=== PATIENT | female | born 1995 | race Caucasian/White ===

== ENCOUNTER 2019-01-11 09:26 | Emergency (ER) | payer BC, OTHER ==
--- NOTE | 2019-01-11 10:17 | ERPHSYRPT ---
- History of Present Illness Time Seen by Provider: 01/11/19 10:10 Historian: patient, family () Exam Limitations: no limitations Patient Subjective Stated Complaint: pain in upper left quadrant and lower medial back, has N&V Triage Nursing Assessment: Pt c/o of sudden onset of LUQ pain and low medial back pain with N&V, and normal delivery on 11/13/2018, pain with palpatation, vitals wnl, pt rates pain 8/10, softer than usual bowel movement this morning, hypoactive bowel sounds, Physician History: The patient is a 23-year-old female with her complaining of a sudden onset of left flank pain about one hour ago. The pain caused her to vomit and has nausea. She denies diarrhea. Upon arrival to the ER the pain subsided for about 10 minutes and now it has come back. The pain has now shifted from the left flank region around to the left lower quadrant and suprapubic area. She delivered a healthy baby on November 13 vaginally. She is not currently breast- feeding. She takes no prescription medicines except control pills. Timing/Duration: today, hour(s) (1), intermittent, sudden, worse Activities at Onset: none Quality: sharpness, stabbing Abdominal Pain Onset Location: flank (left) Pain Radiation: LLQ Severity of Pain-Max: severe Severity of Pain-Current: severe Modifying Factors: Improves With: vomiting Associated Symptoms: nausea, vomiting, No diarrhea Previous symptoms: no prior history Allergies/Adverse Reactions: No Known Drug Allergies Allergy (Verified 01/11/19 09:45) Home Medications: Norethindrone 1 tab PO DAILY 01/11/19 [History] Vits W-Ca,Fe,FA(<1Mg) [] 1 each PO DAILY 01/11/19 [History] - Review of Systems Constitutional: No Fever, No Chills Eyes: No Symptoms Ears, Nose, & Throat: No Symptoms Respiratory: No Cough, No Dyspnea Cardiac: No Chest Pain, No Edema, No Syncope Abdominal/Gastrointestinal: Abdominal Pain, Nausea, Vomiting, No Diarrhea Genitourinary Symptoms: Flank Pain (left), No Dysuria Musculoskeletal: No Back Pain, No Neck Pain Skin: No Rash Neurological: No Dizziness, No Focal Weakness, No Sensory Changes Psychological: No Symptoms Endocrine: No Symptoms Hematologic/Lymphatic: No Symptoms Immunological/Allergic: No Symptoms All Other Systems: Reviewed and Negative - Past Medical History Pertinent Past Medical History: No - Past Surgical History Past Surgical History: No - Social History Smoking Status: Current every day smoker How long have you smoked: 9 years Exposure to second hand smoke: Yes Drug Use: none Patient Lives Alone: No - Female History Hx Last Menstrual Period: 01/09/2019 Hx Now: No - Nursing Vital Signs Nursing Vital Signs: Initial Vital Signs Temperature 71 F 01/11/19 09:33 Blood Pressure 142/91 01/11/19 09:33 O2 Sat by Pulse Oximetry 97 01/11/19 09:33 Pain Scale Pain Intensity 0 - Physical Exam General Appearance: moderate distress Eye Exam: PERRL/EOMI, eyes nml inspection Ears, Nose, Throat Exam: normal ENT inspection, pharynx normal, moist mucous membranes Neck Exam: normal inspection, non-tender, supple, full range of motion Respiratory Exam: normal breath sounds, lungs clear, No respiratory distress Cardiovascular Exam: regular rate/rhythm, normal heart sounds Gastrointestinal/Abdomen Exam: tenderness (LLQ left flank) Pelvic Exam: not done Rectal Exam: not done Back Exam: normal inspection, normal range of motion, No CVA tenderness, No vertebral tenderness Extremity Exam: normal inspection, normal range of motion, pelvis stable Neurologic Exam: alert, oriented x 3, cooperative, normal mood/affect, nml cerebellar function, sensation nml, No motor deficits Skin Exam: normal color, warm, dry SpO2 Interpretation: normal SpO2: 97 O2 Delivery: Room Air - CT Exams Abdomen/Pelvis CT Interpretation: Tele-radiologist Report (Per Dr Whelan), Other (3 mm distal left ureteral stone with mild to moderate hydronephrosis) Ordered Tests: Active Orders 24 hr Category Date Time Status Clean Catch Urine Specimen STAT Care 01/11/19 10:20 Active IV Insertion STAT Care 01/11/19 10:20 Active Strain Urine .as ordered Care 01/11/19 12:05 Active ABDOMEN AND PELVIS W/0 CONTRAS [CT] Stat Exams 01/11/19 10:20 Taken AMYLASE Stat Lab 01/11/19 10:30 Completed CBC W DIFF Stat Lab 01/11/19 10:30 Completed CMP Stat Lab 01/11/19 10:30 Completed CULTURE,URINE Stat Lab 01/11/19 10:30 Received HCG QUALITATIVE,SERUM Stat Lab 01/11/19 10:30 Completed LIPASE Stat Lab 01/11/19 10:30 Completed Lactic Acid Stat Lab 01/11/19 10:35 Completed UA W/RFX UR CULTURE Stat Lab 01/11/19 10:30 Completed Medication Summary Discontinued Medications Generic Name Dose Route Start Last Admin Trade Name Freq PRN Reason Stop Dose Admin Hydromorphone HCl 1 mg 01/11/19 10:20 01/11/19 10:56 Hydromorphone 1 Mg/Ml Ampule IV 01/11/19 10:21 1 mg STAT ONE Administration Hydromorphone HCl Confirm 01/11/19 10:52 Hydromorphone 1 Mg/Ml Ampule Administered 01/11/19 10:53 Dose 1 mg .ROUTE .STK-MED ONE Sodium Chloride 1,000 mls @ 999 mls/hr 01/11/19 10:20 01/11/19 10:56 Sodium Chloride 0.9% 1000 Ml IV 01/11/19 11:20 999 mls/hr .Q1H1M STA Administration Sodium Chloride Confirm 01/11/19 10:52 Sodium Chloride 0.9% 1000 Ml Administered 01/11/19 10:53 Dose 1,000 mls @ ud .ROUTE .STK-MED ONE Ondansetron HCl 4 mg 01/11/19 10:20 01/11/19 10:56 Zofran 4 Mg/2 Ml Vial IV 01/11/19 10:21 4 mg STAT ONE Administration Ondansetron HCl Confirm 01/11/19 10:52 Zofran 4 Mg/2 Ml Vial Administered 01/11/19 10:53 Dose 4 mg .ROUTE .STK-MED ONE Lab/Rad Data: Laboratory Result Diagrams 01/11/19 10:30 01/11/19 10:30 Laboratory Results 01/11/19 01/11/19 01/11/19 Range/Units 10:35 10:30 10:30 WBC (4.0-10.5) K/mm3 RBC (4.1-5.4) M/mm3 Hgb (12.0-16.0) gm/dl Hct (35-47) % MCV (78-100) fl MCH (26-32) pg MCHC (32-36) g/dl RDW (11.5-14.0) % Plt Count (150-450) K/mm3 MPV (6-9.5) fl Gran % (36.0-66.0) % Eos # (Auto) (0-0.5) Absolute Lymphs (auto) (1.0-4.6) Absolute Monos (auto) (0.0-1.3) Lymphocytes % (24.0-44.0) % Monocytes % (0.0-12.0) % Eosinophils % (0.00-5.0) % Basophils % (0.0-0.4) % Absolute Granulocytes (1.4-6.9) Basophils # (0-0.4) Sodium (137-145) mmol/L Potassium (3.5-5.1) mmol/L Chloride (98-107) mmol/L Carbon Dioxide (22-30) mmol/L Anion Gap (5-15) MEQ/L BUN (7-17) mg/dL Creatinine (0.52-1.04) mg/dL Estimated GFR ML/MIN Glucose (74-106) mg/dL Lactic Acid 1.6 (0.4-2.0) Calcium (8.4-10.2) mg/dL Total Bilirubin (0.2-1.3) mg/dL AST (14-36) U/L ALT (0-35) U/L Alkaline Phosphatase (38-126) U/L Serum Total Protein (6.3-8.2) g/dL Albumin (3.5-5.0) g/dL Amylase (30-110) U/L Lipase (23-300) U/L Serum , Qual NEGATIVE (Negative) Urine Color KATERYNA (YELLOW) Urine Appearance CLOUDY (CLEAR) Urine pH 5.0 (5-6) Ur Specific [place] 1.026 (1.005-1.025) Urine Protein 100 (Negative) Urine Ketones NEGATIVE (NEGATIVE) Urine Blood LARGE (0-5) Zack/ul Urine Nitrite NEGATIVE (NEGATIVE) Urine Bilirubin NEGATIVE (NEGATIVE) Urine Urobilinogen 2 (0-1) mg/dL Ur Leukocyte Esterase TRACE (NEGATIVE) Urine WBC (Auto) 26-50 (0-5) /HPF Urine RBC (Auto) >101 (0-2) /HPF U Epithel Cells (Auto) MODERATE (FEW) /HPF Urine Bacteria (Auto) FEW (NEGATIVE) /HPF Calcium Oxalate Crystal >100 (NEGATIVE) /HPF Urine Mucus (Auto) MANY (NEGATIVE) /HPF Urine Culture Reflexed YES (NO) Urine Glucose NEGATIVE (NEGATIVE) mg/dL 01/11/19 01/11/19 Range/Units 10:30 10:30 WBC 12.5 H (4.0-10.5) K/mm3 RBC 4.45 (4.1-5.4) M/mm3 Hgb 12.9 (12.0-16.0) gm/dl Hct 40.1 (35-47) % MCV 90.1 (78-100) fl MCH 29.0 (26-32) pg MCHC 32.2 (32-36) g/dl RDW 12.8 (11.5-14.0) % Plt Count 305 (150-450) K/mm3 MPV 9.2 (6-9.5) fl Gran % 81.8 H (36.0-66.0) % Eos # (Auto) 0.05 (0-0.5) Absolute Lymphs (auto) 1.54 (1.0-4.6) Absolute Monos (auto) 0.65 (0.0-1.3) Lymphocytes % 12.4 L (24.0-44.0) % Monocytes % 5.2 (0.0-12.0) % Eosinophils % 0.4 (0.00-5.0) % Basophils % 0.2 (0.0-0.4) % Absolute Granulocytes 10.19 H (1.4-6.9) Basophils # 0.02 (0-0.4) Sodium 142 (137-145) mmol/L Potassium 3.9 (3.5-5.1) mmol/L Chloride 106 (98-107) mmol/L Carbon Dioxide 26 (22-30) mmol/L Anion Gap 14.2 (5-15) MEQ/L BUN 14 (7-17) mg/dL Creatinine 0.89 (0.52-1.04) mg/dL Estimated GFR > 60.0 ML/MIN Glucose 118 H (74-106) mg/dL Lactic Acid (0.4-2.0) Calcium 9.8 (8.4-10.2) mg/dL Total Bilirubin 0.30 (0.2-1.3) mg/dL AST 20 (14-36) U/L ALT 28 (0-35) U/L Alkaline Phosphatase 76 (38-126) U/L Serum Total Protein 8.3 H (6.3-8.2) g/dL Albumin 4.8 (3.5-5.0) g/dL Amylase 73 (30-110) U/L Lipase 212 (23-300) U/L Serum , Qual (Negative) Urine Color (YELLOW) Urine Appearance (CLEAR) Urine pH (5-6) Ur Specific [place] (1.005-1.025) Urine Protein (Negative) Urine Ketones (NEGATIVE) Urine Blood (0-5) Zack/ul Urine Nitrite (NEGATIVE) Urine Bilirubin (NEGATIVE) Urine Urobilinogen (0-1) mg/dL Ur Leukocyte Esterase (NEGATIVE) Urine WBC (Auto) (0-5) /HPF Urine RBC (Auto) (0-2) /HPF U Epithel Cells (Auto) (FEW) /HPF Urine Bacteria (Auto) (NEGATIVE) /HPF Calcium Oxalate Crystal (NEGATIVE) /HPF Urine Mucus (Auto) (NEGATIVE) /HPF Urine Culture Reflexed (NO) Urine Glucose (NEGATIVE) mg/dL - Progress Progress: improved Progress Note: 01/11/19 12:04 pt given dilaudid 1 mg, zofran 4 mg, and fluids by IV with resolution of pain. Counseled pt/family regarding: rad results - Departure Time of Disposition: 12:04 Departure Disposition: Home Clinical Impression: Ureteral stone with hydronephrosis Condition: Stable Critical Care Time: No Referrals: DOCTOR,NO FAMILY [Primary Care Provider] - Additional Instructions: You have a 3 mm kidney stone on the left side that is very close to passing in to your urinary bladder as seen on the CT scan. You were given Dilaudid 1 mg, Zofran 4 mg, and fluids by IV in the ER. If you have continued pain, take [place] one tablet every 6 hours as needed. Stay well-hydrated. Screen your urine to capture the stone. Bring the stone to your doctor for further analysis. Prescriptions: Hydrocodone/APAP 5-325 Tab^^^ [[place] 5-325 Tablet^^^] 1 tab PO Q6HPRN PRN #10 tablet MDD 6 PRN Reason: Pain
[2019-01-11] MEDS ORDERED: Hydromorphone 1 mg/ml Ampule IV ONE (10:20)
[2019-01-11] MEDS ORDERED: Zofran 4 MG/2 ML VIAL IV ONE (10:20)
[2019-01-11] MEDS ORDERED: Sodium Chloride 0.9% 1000 ML 1,000 ML IV STA (10:20)
[2019-01-11 10:34] LABS: BASOPHIL % 0.2 % (0.0-0.4); Basophil (Absolute #) 0.02 (0-0.4); Eosinophil % 0.4 % (0.00-5.0); Eosinophil (Absolute #) 0.05 (0-0.5); Granulocyte Absolute (ANC) 10.19 (1.4-6.9); Granulocytes % 81.8 % (36.0-66.0); Hematocrit 40.1 % (35-47); Hemoglobin 12.9 gm/dl (12.0-16.0); Lymphocyte (Absolute #) 1.54 (1.0-4.6); Lymphocytes % 12.4 % (24.0-44.0); Mean Cell Volume 90.1 fl (78-100); Mean Corpuscular Hgb Concent. 32.2 g/dl (32-36); Mean Platelet Volume 9.2 fl (6-9.5); Monocyte (Absolute #) 0.65 (0.0-1.3); Monocytes % 5.2 % (0.0-12.0); Platelet Count 305 K/mm3 (150-450); Red Blood Count 4.45 M/mm3 (4.1-5.4); Red Cell Distribution Width 12.8 % (11.5-14.0); White Blood Count 12.5 K/mm3 (4.0-10.5)
[2019-01-11 10:45] LABS: ALBUMIN 4.8 g/dL (3.5-5.0); ALKALINE PHOSPHATASE 76 U/L (38-126); AMYLASE 73 U/L (30-110); ANION GAP 14.2 MEQ/L (5-15); BLOOD UREA NITROGEN 14 mg/dL (7-17); CHLORIDE 106 mmol/L (98-107); Calcium 9.8 mg/dL (8.4-10.2); Carbon Dioxide 26 mmol/L (22-30); Creatinine 1 0.89 mg/dL (0.52-1.04); Glucose 118 mg/dL (74-106); LIPASE 212 U/L (23-300); Potassium 3.9 mmol/L (3.5-5.1); SGOT/AST 20 U/L (14-36); SGPT/ALT 28 U/L (0-35); SODIUM 142 mmol/L (137-145); Total Protein 8.3 g/dL (6.3-8.2)
[2019-01-11] MEDS ORDERED: Zofran 4 MG/2 ML VIAL ONE (10:52)
[2019-01-11] MEDS ORDERED: Hydromorphone 1 mg/ml Ampule ONE (10:52)
[2019-01-11] MEDS ORDERED: Sodium Chloride 0.9% 1000 ML 1,000 ML ONE (10:52)
[2019-01-11 11:14] LABS: Appearance CLOUDY (CLEAR); Bacteria FEW /HPF (NEGATIVE); Bilirubin NEGATIVE (NEGATIVE); Blood LARGE Ery/ul (0-5); Calcium Oxalate Crystals >100 /HPF (NEGATIVE); Epithelial Cells MODERATE /HPF (FEW); Glucose NEGATIVE (NEGATIVE); Ketones NEGATIVE (NEGATIVE); Leukocyte Esterase TRACE (NEGATIVE); Mucus MANY /HPF (NEGATIVE); Nitrite NEGATIVE (NEGATIVE); Protein,Urine Dip 100 (Negative); Specific Gravity 1.026 (1.005-1.025); Urobilinogen 2 mg/dL (0-1); WBC 26-50 /HPF (0-5)
[2019-01-11 11:15] LABS: RBC >101 /HPF (0-2)
[2019-01-11 12:18] VITALS: BP 115/64; PULSE 68
[2019-01-11 12:34] VITALS: O2SAT 97
--- NOTE | 2019-01-11 20:28 | XRAY ---
Indication: Left flank pain. Multiple contiguous axial images obtained through the abdomen and pelvis without contrast as ordered. Comparison: None Lung bases demonstrates 1 cm left base noncalcified nodule probably granulomatous in this demographic. No infiltrate or effusion. Heart is not enlarged. Noncontrasted stomach and bowel loops appear nonobstructed. Normal appendix. 2 mm distal left ureter calculus approximately 2 cm proximal to the UVJ. Proximal left ureter slightly prominent and mild hydronephrosis consistent with partial obstructive uropathy. 2 cm left ovary cyst. No free fluid/air. Remaining liver, gallbladder, pancreas, spleen, adrenal glands, kidneys, ureters, bladder, uterus, and aorta appear unremarkable for noncontrast exam. Osseous structures intact. Impression: 1. 2 mm distal left ureter calculus producing partial obstruction as detailed. 2. 2 cm left ovary cyst. 3. 1 cm left lung base noncalcified nodule probably granulomatous. Comment: Preliminary interpretation was made by C. No critical discrepancy. CTDI 23.68
== END 2019-01-11 12:53 | disposition home or self-care (01) ==
LOC: ED 09:26
DX: N13.2 Hydronephrosis with renal and ureteral calculous obstruction (principal)
CPT/HCPCS: 36000; 36415; 74176; 80053; 81001; 81025; 82150; 83605; 83690; 85025; 87077; 87086; 87186; 96360; 96374; 96375; 99284; J1170; J2405